=== PATIENT | female | born 1980 | race Caucasian/White ===

== ENCOUNTER 2016-03-28 18:41 | Emergency (ER) | payer OTHER ==
--- NOTE | 2016-03-28 21:25 | ED ORDER SUMMARY ---
..... Patient: JOSE KAYE OrderSheet [facility] VisitID: [id number] [address] [place] [address] 35y, F Registration Date/Time: 03/28/2016 ORDER SHEET Weight: 68.0 kg (stated) Allergies: Codeine GENERAL ORDERS: CBC w Diff Urgent (20:32 03/28/2016 HBivens A.R.N.P.) (Ack 20:35 CHagerty ER Digital Printer) (20:52 EInderbitzen R.N.) CMP Urgent (20:32 03/28/2016 HBivens A.R.N.P.) (Ack 20:35 CHagerty ER Digital Printer) (20:52 EInderbitzen R.N.) UA-Culture if indicated Urgent (20:32 03/28/2016 HBivens A.R.N.P.) (Ack 20:35 CHagerty ER Digital Printer) (21:03 EInderbitzen R.N.) Amylase Urgent (20:32 03/28/2016 HBivens A.R.N.P.) (Ack 20:35 CHagerty ER Digital Printer) (20:52 EInderbitzen R.N.) Lipase Urgent (20:32 03/28/2016 HBivens A.R.N.P.) (Ack 20:35 CHagerty ER Digital Printer) (20:52 EInderbitzen R.N.) Urine Drug Screen Urgent (20:32 03/28/2016 HBivens A.R.N.P.) (Ack 20:35 CHagerty ER Digital Printer) (21:03 EInderbitzen R.N.) Urine Urgent (20:32 03/28/2016 HBivens A.R.N.P.) (Ack 20:35 CHagerty ER Digital Printer) (21:03 EInderbitzen R.N.) CPK Urgent (21:03/28/2016 EInderbitzen R.N. verbal order read back to HBivens A.R.N.P.) (21:03 EInderbitzen R.N.) Panel Builder (Continuous) (21:17 03/28/2016 HBivens A.R.N.P.) (21:18 EInderbitzen R.N.) EKG - ER Stat (21:18 03/28/2016 HBivens A.R.N.P.) (21:35 SBaldwin) Pelvis 1 or 2V Urgent (21:31 03/28/2016 HBivens A.R.N.P.) (Ack 21:37 CHagerty ER Digital Printer) (21:47 MCampbell) CT Head wo Cont Urgent (21:55 03/28/2016 HBivens A.R.N.P.) (Ack 21:59 CHagerty ER Digital Printer) (22:16 MCampbell) Weber Catheter (23:07 03/28/2016 HBivens A.R.N.P.) (23:25 EIkennyerbitzen R.N.) MEDICATION ORDERS: IV FLUIDS: IV NS : initial bolus 1000 mL (1000 mL/hr), then none - for X1 (NOW) (20:31 03/28/2016 HBivens A.R.N.P.) (20:52 Ikeermortezazen R.N.) IV Saline Lock (20:32 03/28/2016 HBivens A.R.N.P.) (20:52 Jonozen R.N.) ORDER SHEET NOTES: [Electronically signed by Keena Shultz R.N. (23:42 03/28/2016)] [Electronically signed by Melia MelchorR.N.PCatalina (13:42 04/02/2016)] [Electronically locked/signed by Keena Shultz R.N. (23:42 03/28/2016)]
--- NOTE | 2016-03-28 21:25 | ED ORDER SUMMARY ---
..... Patient: JOSE KAYE OrderSheet [facility] VisitID: [id number] [address] [place] [address] 35y, F Registration Date/Time: 03/28/2016 ORDER SHEET Weight: 68.0 kg (stated) Allergies: Codeine GENERAL ORDERS: CBC w Diff Urgent (20:32 03/28/2016 HBivens A.R.N.P.) (Ack 20:35 CHagerty ER Snowboard Instructor) (20:52 EInderbitzen R.N.) CMP Urgent (20:32 03/28/2016 HBivens A.R.N.P.) (Ack 20:35 CHagerty ER Snowboard Instructor) (20:52 EInderbitzen R.N.) UA-Culture if indicated Urgent (20:32 03/28/2016 HBivens A.R.N.P.) (Ack 20:35 CHagerty ER Snowboard Instructor) (21:03 EInderbitzen R.N.) Amylase Urgent (20:32 03/28/2016 HBivens A.R.N.P.) (Ack 20:35 CHagerty ER Snowboard Instructor) (20:52 EInderbitzen R.N.) Lipase Urgent (20:32 03/28/2016 HBivens A.R.N.P.) (Ack 20:35 CHagerty ER Snowboard Instructor) (20:52 EInderbitzen R.N.) Urine Drug Screen Urgent (20:32 03/28/2016 HBivens A.R.N.P.) (Ack 20:35 CHagerty ER Snowboard Instructor) (21:03 EInderbitzen R.N.) Urine Urgent (20:32 03/28/2016 HBivens A.R.N.P.) (Ack 20:35 CHagerty ER Snowboard Instructor) (21:03 EInderbitzen R.N.) CPK Urgent (21:03/28/2016 EInderbitzen R.N. verbal order read back to HBivens A.R.N.P.) (21:03 EInderbitzen R.N.) Informatics Developer (Continuous) (21:17 03/28/2016 HBivens A.R.N.P.) (21:18 EInderbitzen R.N.) EKG - ER Stat (21:18 03/28/2016 HBivens A.R.N.P.) (21:35 SBaldwin) Pelvis 1 or 2V Urgent (21:31 03/28/2016 HBivens A.R.N.P.) (Ack 21:37 CHagerty ER Snowboard Instructor) (21:47 MCampbell) CT Head wo Cont Urgent (21:55 03/28/2016 HBivens A.R.N.P.) (Ack 21:59 CHagerty ER Snowboard Instructor) (22:16 MCampbell) Weber Catheter (23:07 03/28/2016 HBivens A.R.N.P.) (23:25 EIkennyerbitzen R.N.) MEDICATION ORDERS: IV FLUIDS: IV NS : initial bolus 1000 mL (1000 mL/hr), then none - for X1 (NOW) (20:31 03/28/2016 HBivens A.R.N.P.) (20:52 Ikeermortezazen R.N.) IV Saline Lock (20:32 03/28/2016 HBivens A.R.N.P.) (20:52 Jonozen R.N.) ORDER SHEET NOTES: [Electronically signed by Keena Shultz R.N. (23:42 03/28/2016)] [Electronically signed by Melia MelchorR.N.PCatalina (13:42 04/02/2016)] [Electronically locked/signed by Keena Shultz R.N. (23:42 03/28/2016)]
--- NOTE | 2016-03-28 21:25 | ED NURSING NOTES ---
Clinical Report - Nurses [facility] [address] [place] [address] 03/28/2016 18:42 Patient: JOSE KAYE TRIAGE Triage time 19:07 Mar 28 2016. Acuity: LEVEL 3. Chief Complaint: ("I can't walk"). Alert. No acute distress. DEBO COMA SCORE: Debo Coma Scale: 15- eyes open spontaneously (4); best verbal response- oriented x 4 (5); best motor response- obeys commands (6). --19:12 Edilma Coker R.N. 19:07 03/28/16. BP: 126/83. HR: 92. RR: 16. O2 saturation: 98%. Temp: 98.0 F. Pain level now 0/10. --19:12 Edilma Coker R.N. Weight: 68 kg stated. Height/Length: 62 inches Per Patient. BMI: 27.4. --19:05 Edilma Coker R.N. Medications Cymbalta Oral 60mg , daily. Diazepam Oral 10 mg, as needed (took 2 tablets today at 1800.). --19:09 Edilma Coker R.N. Valtrex Oral (Tablet 500 mg) 2 tablets, daily. --19:09 Edilma Coker R.N. Tenex Oral (unknown). --19:11 Edilma Coker R.N. Medication/allergy information source: the patient. --19:12 Edilma Coker R.N. Allergies Codeine. --19:09 Edilma Coker R.N. History Arrived by private vehicle, and accompanied by family and mother. Primary physician (Dr. Garner). ( Pt states she hasn't been able to walk for a week, has not seen her PCP, PCP doesn't know about the problem. Pt has slurred speech, appears tired while talking to lead slot technician, pupils are dilated, states she's on Valium.). Onset. (1 week). Treatment DIPLOMATIC OFFICER: None. SOCIAL HX: Former smoker. Regular alcohol use. No drug use. No infectious disease exposure. FALL RISK ASSESSMENT: Fall risk assessment completed. No fall risk identified. NUTRITIONAL RISK ASSESSMENT: The nutritional risk assessment revealed no deficiencies. LEARNING NEEDS ASSESSMENT: The learning needs assessment revealed no barriers. SKIN INTEGRITY ASSESSMENT: Skin integrity risk assessment completed. No skin integrity risk identified. --19:12 Edilma Coker R.N. PAST MEDICAL HX: Last normal menstrual period- was on Depo. --19:12 Edilma Coker R.N. ( Additional history. Patient reports that last Friday (03/22) she was bringing wood from a pile into the house when the pile tipped and fell on her. She sustained multiple contusions from this. She reports that while she was reading "papers" in her closet, she fell asleep in a sitting position with feet exteded in front of her for about 16 hours. She had severe pain all over and difficulty walking due to extreme swelling in her legs. She then reports 3 days of voiding dark urine. Mother states that she gave her one of her own oral morhine tablets for her pain. Patient takes large amount of valium daily for PTSD.). --21:18 Keena Shultz R.N. PROBLEMS: Animal Bite. Chest Pain. Depression. PTSD. Back Pain. Arthritis. Post-Op Complications. Nasal Fracture. Contusion. Facial injuries . Alcohol Intoxication. Anxiety Reaction. Pelvic Inflammatory Disease. Vaginitis. Dental Abscess. Conjunctivitis. LNMP - Last Normal Menstrual Period. --19:11 Edilma Coker R.N. ADDITIONAL SURGERIES: Sinus Surgery. --19:11 Edilma Coker R.N. Interventions ID band on patient. To room. --19:12 Edilma Coker R.N. PHYSICAL ASSESSMENT To room via wheelchair. ( large bruise on right upper arm and left outer thight. Large bruise on coccyx extending to both buttocks, scattered small bruises on arms and legs.). GENERAL / NEURO / PSYCH: Alert. Oriented X 4. Appears in pain. HEENT: Pupils equal, round and reactive to light. No facial asymmetry noted. No facial weakness. No pharyngeal erythema or active bleeding from nose. No sinus tenderness present. ( reported bloody mucus from nose). Mucous membranes are pink. RESPIRATORY: Respirations not labored. Cough (subjectively reported bloody sputum). Chest nontender. Breath sounds within normal limits. CVS: Normal sinus rhythm noted. Pulses within normal limits. GI / : Abdomen soft and nontender and normal bowel sounds. EXTREMITIES: Bilateral 4+ non-pitting edema of the lower extremities involving both feet, both ankles, both lower legs and both thighs. SKIN: Skin intact. Skin is warm and dry. Normal skin turgor. --21:14 Keena Shultz R.N. NURSING PROGRESS NOTES 20:20 03/28/16. The initial plan of care for this patient includes an assessment with efforts to address patient positioning; the presence of pain; impairment of the cardiovascular, musculoskeletal and integumentary system. This plan of care was discussed with the patient. Patient gowned. Reassurance given. Patient identifiers checked. Call light placed in reach. Side rails up x 2. Bed placed in lowest position. Brakes of bed on. Patient ready for evaluation. --20:35 Keena Shultz R.N. 20:20 03/28/2016 Site #1 started via IV in the right forearm with an 20g angiocath, with aseptic technique and good blood return; one attempt. Saline lock flushed with 10 mL saline. --20:39 Keena Shultz R.N. 20:25 03/28/16. Patient ID band checked for patient name and birthdate: patient confirmed. Blood samples drawn from the left antecubital space with syringe and 22g butterfly by nurse ; labeled in presence of the patient and sent to lab: rainbow set. --20:40 Keena Shultz R.N. 20:30 03/28/2016 Started bag #1 1000 mL IV Fluids IV NS (Saline); at 1000 mL/hr over 1 hour(s) via site #1. Allergies verified and confirmed 5 rights. IV patency established. IV site checked: no pain, redness, or swelling. IV flushed thoroughly pre- and post-medication administration. --20:52 Keena Shultz R.N. 20:41 03/28/16. Pulse oximeter and NIBP monitor placed on patient; still cleaner tube- Lead II; monitor alarms on. --20:41 Keena Shultz R.N. 21:01 03/28/16. 10 fr in/out catheterization placed. Reason for indwelling catheter: trauma. During procedure hand hygiene observed and sterile equipment and aseptic technique used. Return of less than 50 mL yellow-colored clear urine. She tolerated procedure well. ( while doing straight cath for urine. mother at bedside reports that she may have opiates in urine as she gave her one of her own oral morphine tablets today). --21:01 Keena Shultz R.N. 21:03/28/16. Critical value relayed to ED by Aleksandr. Critical value received by Jolene. BUN: 86. ED physician and AUTHORIZATION SPECIALIST notifed of critical value. Orders were received. --21:09 Keena Shultz R.N. 21:10 03/28/16. BP: 141/80. HR: 89. RR: 20. O2 saturation: 97%. Pain level now 3/10. --21:10 Keena Shultz R.NCatalina 21:26 03/28/16. network internship, pulse oximeter and NIBP monitor placed on patient; still cleaner tube- Lead II; monitor alarms on. --21:26 Keena Shultz R.N. EKG time: (21:36:02 PM). EKG was performed by a tech and shown to the ED physician. --21:46 Jens Friend 21:53 03/28/16. Cardiac rhythm: normal sinus rhythm. ( to be transferred to facility yet to be determined. pt and family aware). --21:53 Keena Shultz R.N. 21:53 03/28/16. BP: 142/80. HR: 91. RR: 18. O2 saturation: 98%. Pain level now 5/10. --21:53 Keena Shultz R.NCatalina 23:24 03/28/16. 14 fr shea catheter placed. Reason for indwelling catheter: trauma, critical need to monitor intake and output and requires prolonged immobilization. During procedure hand hygiene observed and sterile equipment and aseptic technique used. Return of greater than 1000 mL yellow-colored clear urine; attached to bedside drainage bag positioned below the bladder and secured with stabilization device. She tolerated procedure well. --23:24 Keena Shultz R.N. 23:24 03/28/16. BP: 142/84. HR: 94. RR: 18. O2 saturation: 97%. Temp: 99.0 F. Pain level now 09/26. --23:24 Keena Shultz R.N. Intake & Output IV fluids: 1000 mL. Urine: 1300 mL. --23:24 Keena Shultz R.N. DISPOSITION / DISCHARGE 21:30 03/28/2016 IV Fluids IV NS Discontinued: bag #1 completed. Total amount infused: 1000 mL. IV patency established. IV site checked: no pain, redness, or swelling. IV flushed thoroughly. --23:41 Keena Shultz R.N. 23:30 03/28/16. Condition at departure: improved and stable. The goals identified in the patient's plan of care were met. Transferred to [facility]. Summary of care provided to transport team and transfer facility via paper (5a room 514-1). Report was given to a nurse via a phone call. Report included patient's care, treatment, medications, reviewed medication reconcilliation, and condition (including any recent changes or anticipated changes). All questions were answered. Report was acknowledged. (to TERESO Rudd). --23:42 Keena Shultz R.N. 23:22 03/28/16. BP: 142/84. HR: 94. RR: 18. O2 saturation: 97%. Temp: 99.0 F. Pain level now 09/26. 21:52 03/28/16. BP: 142/80. HR: 91. RR: 18. O2 saturation: 98%. Pain level now 06/26. 21:10 03/28/16. BP: 141/80. HR: 89. RR: 20. O2 saturation: 97%. Pain level now 04/26. 19:07 03/28/16. BP: 126/83. HR: 92. RR: 16. O2 saturation: 98%. Temp: 98.0 F. Pain level now 0/10. --23:42 Keena Shultz R.N. Departure time: 23:30 Mar 28 2016. --23:42 Keena Shultz R.N. Locked/Released at 03/28/2016 23:42 by Keena Shultz R.N.
--- NOTE | 2016-03-28 21:25 | ED NURSING NOTES ---
Clinical Report - Nurses [facility] [address] [place] [address] 03/28/2016 18:42 Patient: JOSE KAYE TRIAGE Triage time 19:07 Mar 28 2016. Acuity: LEVEL 3. Chief Complaint: ("I can't walk"). Alert. No acute distress. DEBO COMA SCORE: Debo Coma Scale: 15- eyes open spontaneously (4); best verbal response- oriented x 4 (5); best motor response- obeys commands (6). --19:12 Edilma Coker R.N. 19:07 03/28/16. BP: 126/83. HR: 92. RR: 16. O2 saturation: 98%. Temp: 98.0 F. Pain level now 0/10. --19:12 Edilma Coker R.N. Weight: 68 kg stated. Height/Length: 62 inches Per Patient. BMI: 27.4. --19:05 Edilma Coker R.N. Medications Cymbalta Oral 60mg , daily. Diazepam Oral 10 mg, as needed (took 2 tablets today at 1800.). --19:09 Edilma Coker R.N. Valtrex Oral (Tablet 500 mg) 2 tablets, daily. --19:09 Edilma Coker R.N. Tenex Oral (unknown). --19:11 Edilma Coker R.N. Medication/allergy information source: the patient. --19:12 Edilma Coker R.N. Allergies Codeine. --19:09 Edilma Coker R.N. History Arrived by private vehicle, and accompanied by family and mother. Primary physician (Dr. Garner). ( Pt states she hasn't been able to walk for a week, has not seen her PCP, PCP doesn't know about the problem. Pt has slurred speech, appears tired while talking to service attendant cafeteria, pupils are dilated, states she's on Valium.). Onset. (1 week). Treatment POINT OF SALE ASSOCIATE: None. SOCIAL HX: Former smoker. Regular alcohol use. No drug use. No infectious disease exposure. FALL RISK ASSESSMENT: Fall risk assessment completed. No fall risk identified. NUTRITIONAL RISK ASSESSMENT: The nutritional risk assessment revealed no deficiencies. LEARNING NEEDS ASSESSMENT: The learning needs assessment revealed no barriers. SKIN INTEGRITY ASSESSMENT: Skin integrity risk assessment completed. No skin integrity risk identified. --19:12 Edilma Coker R.N. PAST MEDICAL HX: Last normal menstrual period- was on Depo. --19:12 Edilma Coker R.N. ( Additional history. Patient reports that last Friday (03/22) she was bringing wood from a pile into the house when the pile tipped and fell on her. She sustained multiple contusions from this. She reports that while she was reading "papers" in her closet, she fell asleep in a sitting position with feet exteded in front of her for about 16 hours. She had severe pain all over and difficulty walking due to extreme swelling in her legs. She then reports 3 days of voiding dark urine. Mother states that she gave her one of her own oral morhine tablets for her pain. Patient takes large amount of valium daily for PTSD.). --21:18 Keena Shultz R.N. PROBLEMS: Animal Bite. Chest Pain. Depression. PTSD. Back Pain. Arthritis. Post-Op Complications. Nasal Fracture. Contusion. Facial injuries . Alcohol Intoxication. Anxiety Reaction. Pelvic Inflammatory Disease. Vaginitis. Dental Abscess. Conjunctivitis. LNMP - Last Normal Menstrual Period. --19:11 Edilma Coker R.N. ADDITIONAL SURGERIES: Sinus Surgery. --19:11 Edilma Coker R.N. Interventions ID band on patient. To room. --19:12 Edilma Coker R.N. PHYSICAL ASSESSMENT To room via wheelchair. ( large bruise on right upper arm and left outer thight. Large bruise on coccyx extending to both buttocks, scattered small bruises on arms and legs.). GENERAL / NEURO / PSYCH: Alert. Oriented X 4. Appears in pain. HEENT: Pupils equal, round and reactive to light. No facial asymmetry noted. No facial weakness. No pharyngeal erythema or active bleeding from nose. No sinus tenderness present. ( reported bloody mucus from nose). Mucous membranes are pink. RESPIRATORY: Respirations not labored. Cough (subjectively reported bloody sputum). Chest nontender. Breath sounds within normal limits. CVS: Normal sinus rhythm noted. Pulses within normal limits. GI / : Abdomen soft and nontender and normal bowel sounds. EXTREMITIES: Bilateral 4+ non-pitting edema of the lower extremities involving both feet, both ankles, both lower legs and both thighs. SKIN: Skin intact. Skin is warm and dry. Normal skin turgor. --21:14 Keena Shultz R.N. NURSING PROGRESS NOTES 20:20 03/28/16. The initial plan of care for this patient includes an assessment with efforts to address patient positioning; the presence of pain; impairment of the cardiovascular, musculoskeletal and integumentary system. This plan of care was discussed with the patient. Patient gowned. Reassurance given. Patient identifiers checked. Call light placed in reach. Side rails up x 2. Bed placed in lowest position. Brakes of bed on. Patient ready for evaluation. --20:35 Keena Shultz R.N. 20:20 03/28/2016 Site #1 started via IV in the right forearm with an 20g angiocath, with aseptic technique and good blood return; one attempt. Saline lock flushed with 10 mL saline. --20:39 Keena Shultz R.N. 20:25 03/28/16. Patient ID band checked for patient name and birthdate: patient confirmed. Blood samples drawn from the left antecubital space with syringe and 22g butterfly by nurse ; labeled in presence of the patient and sent to lab: rainbow set. --20:40 Keena Shultz R.N. 20:30 03/28/2016 Started bag #1 1000 mL IV Fluids IV NS (Saline); at 1000 mL/hr over 1 hour(s) via site #1. Allergies verified and confirmed 5 rights. IV patency established. IV site checked: no pain, redness, or swelling. IV flushed thoroughly pre- and post-medication administration. --20:52 Keena Shultz R.N. 20:41 03/28/16. Pulse oximeter and NIBP monitor placed on patient; surveillance system monitor- Lead II; monitor alarms on. --20:41 Keena Shultz R.N. 21:01 03/28/16. 10 fr in/out catheterization placed. Reason for indwelling catheter: trauma. During procedure hand hygiene observed and sterile equipment and aseptic technique used. Return of less than 50 mL yellow-colored clear urine. She tolerated procedure well. ( while doing straight cath for urine. mother at bedside reports that she may have opiates in urine as she gave her one of her own oral morphine tablets today). --21:01 Keena Shultz R.N. 21:03/28/16. Critical value relayed to ED by Aleksandr. Critical value received by Jolene. BUN: 86. ED physician and DRYING TUMBLER OPERATOR notifed of critical value. Orders were received. --21:09 Keena Shultz R.N. 21:10 03/28/16. BP: 141/80. HR: 89. RR: 20. O2 saturation: 97%. Pain level now 3/10. --21:10 Keena Shultz R.NCatalina 21:26 03/28/16. potline monitor, pulse oximeter and NIBP monitor placed on patient; surveillance system monitor- Lead II; monitor alarms on. --21:26 Keena Shultz R.N. EKG time: (21:36:02 PM). EKG was performed by a tech and shown to the ED physician. --21:46 Jens Friend 21:53 03/28/16. Cardiac rhythm: normal sinus rhythm. ( to be transferred to facility yet to be determined. pt and family aware). --21:53 Keena Shultz R.N. 21:53 03/28/16. BP: 142/80. HR: 91. RR: 18. O2 saturation: 98%. Pain level now 5/10. --21:53 Keena Shultz R.NCatalina 23:24 03/28/16. 14 fr shea catheter placed. Reason for indwelling catheter: trauma, critical need to monitor intake and output and requires prolonged immobilization. During procedure hand hygiene observed and sterile equipment and aseptic technique used. Return of greater than 1000 mL yellow-colored clear urine; attached to bedside drainage bag positioned below the bladder and secured with stabilization device. She tolerated procedure well. --23:24 Keena Shultz R.N. 23:24 03/28/16. BP: 142/84. HR: 94. RR: 18. O2 saturation: 97%. Temp: 99.0 F. Pain level now 09/26. --23:24 Keena Shultz R.N. Intake & Output IV fluids: 1000 mL. Urine: 1300 mL. --23:24 Keena Shultz R.N. DISPOSITION / DISCHARGE 21:30 03/28/2016 IV Fluids IV NS Discontinued: bag #1 completed. Total amount infused: 1000 mL. IV patency established. IV site checked: no pain, redness, or swelling. IV flushed thoroughly. --23:41 Keena Shultz R.N. 23:30 03/28/16. Condition at departure: improved and stable. The goals identified in the patient's plan of care were met. Transferred to [facility]. Summary of care provided to transport team and transfer facility via paper (5a room 514-1). Report was given to a nurse via a phone call. Report included patient's care, treatment, medications, reviewed medication reconcilliation, and condition (including any recent changes or anticipated changes). All questions were answered. Report was acknowledged. (to TERESO Rudd). --23:42 Keena Shultz R.N. 23:22 03/28/16. BP: 142/84. HR: 94. RR: 18. O2 saturation: 97%. Temp: 99.0 F. Pain level now 09/26. 21:52 03/28/16. BP: 142/80. HR: 91. RR: 18. O2 saturation: 98%. Pain level now 06/26. 21:10 03/28/16. BP: 141/80. HR: 89. RR: 20. O2 saturation: 97%. Pain level now 04/26. 19:07 03/28/16. BP: 126/83. HR: 92. RR: 16. O2 saturation: 98%. Temp: 98.0 F. Pain level now 0/10. --23:42 Keena Shultz R.N. Departure time: 23:30 Mar 28 2016. --23:42 Keena Shultz R.N. Locked/Released at 03/28/2016 23:42 by Keena Shultz R.N.
--- NOTE | 2016-03-28 21:25 | ED CLINICAL REPORT ---
Clinical Report - Physicians/Mid Levels [facility] [address] [place] [address] 03/28/2016 18:42 Patient: JOSE KAYE Time Seen: 2019; upon arrival, initial patient contact, initial documentation, patient care assumed. Arrived- By private vehicle. Historian- patient. HISTORY OF PRESENT ILLNESS Chief Complaint: WEAKNESS. This started about 3 days ago and is still present. The patient has had new onset of localized weakness of the right leg (moderate). No numbness, tingling, impaired speech or swallowing or visual disturbance. She has had difficulty walking. It has been associated with weakness in the right leg. She has had one recent fall (says she tripped a few days ago bringing firewood around, fell onto firewood pile and ladder, multiple bruises everywhere). There has been no fall preceded by dizziness. No fall associated with seizure activity, palpitations or headache. No similar fall symptoms previously. No history of falling episodes. This was not associated with loss of consciousness. At its maximum deficit described as severe. When seen in the E.D.,deficit described as moderate. No dizziness, altered mental status, seizure or blackouts. Usually is alert and oriented X3 and has normal mobility. (says she is too weak to walk and has been crawling on hands and knees around the house, took one of mom's pain pills for the hip pain). Similar symptoms previously: None. Recent medical care: Not recently seen/assessed. REVIEW OF SYSTEMS No fever, headache, head injury, chest pain or difficulty breathing. No abdominal pain, diarrhea, difficulty with urination or vomiting. She has had moderate joint pain, involving the right hip and left hip. No swelling, erythema or warmth. c/o dark urine. All systems otherwise negative, except as recorded above. PAST HISTORY See nurses notes. ( PROBLEMS: Animal Bite. Chest Pain. Depression. PTSD. Back Pain. Arthritis. Post-Op Complications. Nasal Fracture. Contusion. Facial injuries . Alcohol Intoxication. Anxiety Reaction. Pelvic Inflammatory Disease. Vaginitis. Dental Abscess. Conjunctivitis. LNMP - Last Normal Menstrual Period. --19:11 Edilma Coker R.N. ADDITIONAL SURGERIES: Sinus Surgery. --19:11 Edilma Coker R.N.). SOCIAL HISTORY Former smoker. Occasional alcohol use. No drug use. No recent travel. Is a local resident. FAMILY HISTORY Negative. ADDITIONAL NOTES The nursing notes have been reviewed with agreement regarding the chief complaint, HPI, ROS, PMH and patient medications and allergies. PHYSICAL EXAM Vital Signs: 03/28/2016 19:07 BP: 126/83. HR: 92. RR: 16. O2 saturation: 98%. Temp: 98.0 F. Have been reviewed as normal and appear to be correct. Appearance: Alert. No acute distress. (somewhat slurred speech appears under the influence). Head: Head atraumatic. Eyes: Pupils equal, round and reactive to light. ENT: Normal ENT inspection. Airway intact. Pharynx normal. Neck: Normal inspection. Neck supple. CVS: Normal heart rate and rhythm. Heart sounds normal. Pulses normal. Respiratory: No respiratory distress. Breath sounds normal. Abdomen: Soft and nontender. No organomegaly. Back: Normal inspection. Skin: Skin warm and dry. Normal skin color. No rash. Normal skin turgor. Extremities: Extremities exhibit normal ROM. No lower extremity edema. (multiple bruises noted, R upper arm, R knee, L thigh). Neuro: Alert. Oriented X 3. Mood/affect normal. Abnormal speech. Cranial nerves normal (as tested). No cerebellar findings. Motor deficit noted. She has had localized weakness of the right leg (mild). No sensory deficit. LABS, X-RAYS, AND EKG EKG: EKG time: (2135). No acute process. No acute ischemia. Normal EKG. Rate: 88. Normal EKG. The study has been interpreted contemporaneously by me (and DR Adamson). The EKG appears to be a good tracing. Interpretation time: 2135. X-Rays: Pelvis negative. Pelvis X-ray: (IMPRESSION: 1. Negative pelvis Electronically Final signed by:Miguel Alvarenga MD 03/28/2016 9:50:18 PM). The X-rays were interpreted by the radiologist and contemporaneously by me. CT Head: No acute disease. (IMPRESSION: 1. Negative non-enhanced head CT. 2. Findings discussed with Melia Melchor at 10:18 p.m.[facility] Time Electronically Final signed by:Miguel Alvarenga MD 03/28/2016 10:21:33 PM). The study was interpreted by the radiologist and discussed with the radiologist. Interpretation time: 22:20. Laboratory Tests: UA-Culture if indicated: (YUE: 03/28/2016 20:55) ( [facility] 21:30) Final results Test Result Flag Units (Reference) URINE COLOR LIGHT YELLOW URINE APPEARANCE CLEAR URINE GLUCOSE NEGATIVE (NEGATIVE) URINE BILIRUBIN NEGATIVE (NEGATIVE) URINE KETONE NEGATIVE (NEGATIVE) URINE SPECIFIC GRAVITY <= 1.005 L (1.010-1.030) URINE PH 6.0 (5.0-8.0) URINE PROTEIN NEGATIVE (NEGATIVE) URINE UROBILINOGEN 0.2 EU/dL (0.2-1.0) URINE NITRITE NEGATIVE (NEGATIVE) URINE BLOOD 1+ (NEGATIVE) URINE LEUK ESTERASE NEGATIVE (NEGATIVE) URINE RBC 0-1 rbc/hpf (0-1) URINE WBC 0-1 wbc/hpf (0-1) URINE EPITHELIAL CELLS 0-1 EPI/hpf (0-5) URINE BACTERIA NONE SEEN (NONE SEEN) URINE COMMENT CULTURE INDICATED URINE CULTURES ARE SET-UP BASED ON THE FOLLOWING CRITERIA:POSITIVE NITRITEPOSITIVE LEUKOCYTE ESTERASEGREATER THAN 10 WHITE BLOOD CELLSMODERATE (2+) OR GREATER BACTERIA Urine: (YUE: 03/28/2016 20:55) ( MegRcvd 03/28/2016 21:08) Final results Test Result Flag Units (Reference) URINE NEGATIVE CBC w Diff: (YUE: 03/28/2016 20:30) ( MsgRcvd 03/28/2016 20:52) Final results Test Result Flag Units (Reference) WHITE BLOOD COUNT 5.3 K/uL (4.5-11.5) RED BLOOD COUNT 3.74 L M/uL (4.00-5.20) HEMOGLOBIN 13.0 gm/dL (12.0-16.0) HEMATOCRIT 37.8 % (36.0-46.0) MEAN CELL VOLUME 101 H fL (80-100) MEAN CORPUSCULAR HGB 35 H pg (26-34) MEAN CORPUSCULAR HGB CONC 34 g/dL (31-37) RED CELL DISTRIBUTION WIDTH 15.3 H % (11.6-14.8) PLATELET COUNT 159 K/uL (150-400) NEUTROPHIL % 53.9 % (50-75) LYMPH % 31.8 % (25-40) MONO % 10.6 % (3-14) EOSINOPHIL % 3.4 % (0-4) BASOPHIL % 0.3 % (0-2) Urine Drug Screen: (YUE: 03/28/2016 20:55) ( MsgRcvd 03/28/2016 21:29) Final results Test Result Flag Units (Reference) AMPHETAMINE/METHAMPHETAMINE NEGATIVE (NEGATIVE) BARBITURATE NEGATIVE (NEGATIVE) BENZODIAZEPINE POSITIVE H (NEGATIVE) CANNABINOID NEGATIVE (NEGATIVE) COCAINE NEGATIVE (NEGATIVE) ECSTASY NEGATIVE (NEGATIVE) METHADONE NEGATIVE (NEGATIVE) OPIATE POSITIVE H (NEGATIVE) The urine drug screen is a qualitative screening test fordrug overdose and abuse. All screen results should beconsidered as presumptive.Drugs screened for are as follows:BenzodiazepinesCocaineAmphetamines/MetamphetaminesTHC (Tetrahydrocannabinol)OpiatesBarbituratesEcstasyMethadonePositive results are unconfirmed. For confirmation, notifythe lab for the specimen to be sent to the reference lab.All confirmations must be performed by a differentmethodology.The ingestion of natural herbal and plant productscontaining Ephedra/Ephedra metabolites can produce in urineone or more substances capable of cross reacting withamphetamine/methamphetamine immunoassays. These testsprovide a preliminary result only. A more specificalternative chemical method must be used to obtain aconfirmed analytical result. CMP: (YUE: 03/28/2016 20:30) ( [facility] 03/28/2016 22:35) Final results Test Result Flag Units (Reference) GLUCOSE 159 H mg/dL (70-110) BUN 86 *H mg/dL (7-18) CRITICAL RESULTS CALLEDCalled to GARY 03/28/162107Were 2 patient identifiers used? YWas the result read back? Y CREATININE 3.3 H mg/dL (0.6-1.3) Estimated GFR 17.11 mL/min Estimated GFR- 20.74 mL/min Note: Persistent reduction over 3 months in eGFR<60 mL/min/1.73 m2 defines CKD. Patients with eGFR values>=60 mL/min/1.73 m2 may also have CKD if evidence ofpersistent proteinuria. Additional information may be foundat www.kidney.org. SODIUM 123 L mmol/L (136-145) POTASSIUM 3.3 L mmol/L (3.5-5.1) CHLORIDE 85 L mmol/L (98-107) CARBON DIOXIDE 23 mmol/L (21-32) CALCIUM 9.0 mg/dL (8.5-10.1) TOTAL PROTEIN 6.9 g/dL (6.4-8.2) ALBUMIN 3.3 g/dL (3.3-5.0) BILIRUBIN, TOTAL 1.0 mg/dL (0.0-1.0) ALKALINE PHOSPHATASE 157 H U/L (46-116) AST (SGOT) 852 H U/L (15-37) ALT (SGPT) 550 H U/L (12-78) LIPASE 745 H U/L (73-393) AMYLASE 90 U/L (25-115) CPK 39084 H U/L (24-260) . PROGRESS AND PROCEDURES Course of Care: 20:49 03/28/16. pt has martha pt of [place] [facility], consistent Valium rx, 21:17 03/28/16. pt and mom aware of current lab results, more pending and need for transfer for kidney failure/insufficiency 2150. Spoke to TERESO Cagle at [facility] and Dr. Cristóbal Young, with pt report and need for transfer, Dr. Wolf accepted, and general medicine bed being held as long as head ct neg agreed to call Tsering back with results 2204. pt in ct, mom updated with transfer status 2225. Cpas informed of CT results and asked to call Tsering at [facility] to let her know, and call ems for transport for transfer 22:45 03/28/16. transfer form completed 23:08 03/28/16. transport team here. Critical care performed. Time includes: direct patient care, patient reassessment, coordination of patient care, interpretation of data (laboratory data), medical consultation and documentation of patient care- see progress notes. Discussed case with on-call health care provider, (call returned [phone]). Reviewed test results and need for additional work-up. Agreed upon treatment plan. Patient and mother counseled in person several times regarding the patient's stable condition, test results and need for additional testing and transfer. Differential Diagnosis: Other possible considerations: substance abuse, cva, tia, brain tumor, rhabdo, dehydration, hemorrhaging. Above considerations are based on history, physical exam, laboratory data and EKG. Differential diagnosis was discussed with patient. Disposition: Benefits, risks and alternatives to transfer explained to patient. Transferred to [facility]. Summary of care provided to transport team and transfer facility via paper and digital media. 21:59. CLINICAL IMPRESSION Acute renal insufficiency. Moderate hyponatremia. (Electronically signed by Melia Melchor A.R.N.P. 04/02/2016 13:42)
--- NOTE | 2016-03-28 21:25 | ED CLINICAL REPORT ---
Clinical Report - Physicians/Mid Levels [facility] [address] [place] [address] 03/28/2016 18:42 Patient: JOSE KAYE Time Seen: 2019; upon arrival, initial patient contact, initial documentation, patient care assumed. Arrived- By private vehicle. Historian- patient. HISTORY OF PRESENT ILLNESS Chief Complaint: WEAKNESS. This started about 3 days ago and is still present. The patient has had new onset of localized weakness of the right leg (moderate). No numbness, tingling, impaired speech or swallowing or visual disturbance. She has had difficulty walking. It has been associated with weakness in the right leg. She has had one recent fall (says she tripped a few days ago bringing firewood around, fell onto firewood pile and ladder, multiple bruises everywhere). There has been no fall preceded by dizziness. No fall associated with seizure activity, palpitations or headache. No similar fall symptoms previously. No history of falling episodes. This was not associated with loss of consciousness. At its maximum deficit described as severe. When seen in the E.D.,deficit described as moderate. No dizziness, altered mental status, seizure or blackouts. Usually is alert and oriented X3 and has normal mobility. (says she is too weak to walk and has been crawling on hands and knees around the house, took one of mom's pain pills for the hip pain). Similar symptoms previously: None. Recent medical care: Not recently seen/assessed. REVIEW OF SYSTEMS No fever, headache, head injury, chest pain or difficulty breathing. No abdominal pain, diarrhea, difficulty with urination or vomiting. She has had moderate joint pain, involving the right hip and left hip. No swelling, erythema or warmth. c/o dark urine. All systems otherwise negative, except as recorded above. PAST HISTORY See nurses notes. ( PROBLEMS: Animal Bite. Chest Pain. Depression. PTSD. Back Pain. Arthritis. Post-Op Complications. Nasal Fracture. Contusion. Facial injuries . Alcohol Intoxication. Anxiety Reaction. Pelvic Inflammatory Disease. Vaginitis. Dental Abscess. Conjunctivitis. LNMP - Last Normal Menstrual Period. --19:11 Edilma Coker R.N. ADDITIONAL SURGERIES: Sinus Surgery. --19:11 Edilma Coker R.N.). SOCIAL HISTORY Former smoker. Occasional alcohol use. No drug use. No recent travel. Is a local resident. FAMILY HISTORY Negative. ADDITIONAL NOTES The nursing notes have been reviewed with agreement regarding the chief complaint, HPI, ROS, PMH and patient medications and allergies. PHYSICAL EXAM Vital Signs: 03/28/2016 19:07 BP: 126/83. HR: 92. RR: 16. O2 saturation: 98%. Temp: 98.0 F. Have been reviewed as normal and appear to be correct. Appearance: Alert. No acute distress. (somewhat slurred speech appears under the influence). Head: Head atraumatic. Eyes: Pupils equal, round and reactive to light. ENT: Normal ENT inspection. Airway intact. Pharynx normal. Neck: Normal inspection. Neck supple. CVS: Normal heart rate and rhythm. Heart sounds normal. Pulses normal. Respiratory: No respiratory distress. Breath sounds normal. Abdomen: Soft and nontender. No organomegaly. Back: Normal inspection. Skin: Skin warm and dry. Normal skin color. No rash. Normal skin turgor. Extremities: Extremities exhibit normal ROM. No lower extremity edema. (multiple bruises noted, R upper arm, R knee, L thigh). Neuro: Alert. Oriented X 3. Mood/affect normal. Abnormal speech. Cranial nerves normal (as tested). No cerebellar findings. Motor deficit noted. She has had localized weakness of the right leg (mild). No sensory deficit. LABS, X-RAYS, AND EKG EKG: EKG time: (2135). No acute process. No acute ischemia. Normal EKG. Rate: 88. Normal EKG. The study has been interpreted contemporaneously by me (and DR Adamson). The EKG appears to be a good tracing. Interpretation time: 2135. X-Rays: Pelvis negative. Pelvis X-ray: (IMPRESSION: 1. Negative pelvis Electronically Final signed by:Miguel Alvarenga MD 03/28/2016 9:50:18 PM). The X-rays were interpreted by the radiologist and contemporaneously by me. CT Head: No acute disease. (IMPRESSION: 1. Negative non-enhanced head CT. 2. Findings discussed with Melia Melchor at 10:18 p.m.[facility] Time Electronically Final signed by:Miguel Alvarenga MD 03/28/2016 10:21:33 PM). The study was interpreted by the radiologist and discussed with the radiologist. Interpretation time: 22:20. Laboratory Tests: UA-Culture if indicated: (YUE: 03/28/2016 20:55) ( [facility] [place] 21:30) Final results Test Result Flag Units (Reference) URINE COLOR LIGHT YELLOW URINE APPEARANCE CLEAR URINE GLUCOSE NEGATIVE (NEGATIVE) URINE BILIRUBIN NEGATIVE (NEGATIVE) URINE KETONE NEGATIVE (NEGATIVE) URINE SPECIFIC GRAVITY <= 1.005 L (1.010-1.030) URINE PH 6.0 (5.0-8.0) URINE PROTEIN NEGATIVE (NEGATIVE) URINE UROBILINOGEN 0.2 EU/dL (0.2-1.0) URINE NITRITE NEGATIVE (NEGATIVE) URINE BLOOD 1+ (NEGATIVE) URINE LEUK ESTERASE NEGATIVE (NEGATIVE) URINE RBC 0-1 rbc/hpf (0-1) URINE WBC 0-1 wbc/hpf (0-1) URINE EPITHELIAL CELLS 0-1 EPI/hpf (0-5) URINE BACTERIA NONE SEEN (NONE SEEN) URINE COMMENT CULTURE INDICATED URINE CULTURES ARE SET-UP BASED ON THE FOLLOWING CRITERIA:POSITIVE NITRITEPOSITIVE LEUKOCYTE ESTERASEGREATER THAN 10 WHITE BLOOD CELLSMODERATE (2+) OR GREATER BACTERIA Urine: (YUE: 03/28/2016 20:55) ( WagRcvd 03/28/2016 21:08) Final results Test Result Flag Units (Reference) URINE NEGATIVE CBC w Diff: (YUE: 03/28/2016 20:30) ( MsgRcvd 03/28/2016 20:52) Final results Test Result Flag Units (Reference) WHITE BLOOD COUNT 5.3 K/uL (4.5-11.5) RED BLOOD COUNT 3.74 L M/uL (4.00-5.20) HEMOGLOBIN 13.0 gm/dL (12.0-16.0) HEMATOCRIT 37.8 % (36.0-46.0) MEAN CELL VOLUME 101 H fL (80-100) MEAN CORPUSCULAR HGB 35 H pg (26-34) MEAN CORPUSCULAR HGB CONC 34 g/dL (31-37) RED CELL DISTRIBUTION WIDTH 15.3 H % (11.6-14.8) PLATELET COUNT 159 K/uL (150-400) NEUTROPHIL % 53.9 % (50-75) LYMPH % 31.8 % (25-40) MONO % 10.6 % (3-14) EOSINOPHIL % 3.4 % (0-4) BASOPHIL % 0.3 % (0-2) Urine Drug Screen: (YUE: 03/28/2016 20:55) ( MsgRcvd 03/28/2016 21:29) Final results Test Result Flag Units (Reference) AMPHETAMINE/METHAMPHETAMINE NEGATIVE (NEGATIVE) BARBITURATE NEGATIVE (NEGATIVE) BENZODIAZEPINE POSITIVE H (NEGATIVE) CANNABINOID NEGATIVE (NEGATIVE) COCAINE NEGATIVE (NEGATIVE) ECSTASY NEGATIVE (NEGATIVE) METHADONE NEGATIVE (NEGATIVE) OPIATE POSITIVE H (NEGATIVE) The urine drug screen is a qualitative screening test fordrug overdose and abuse. All screen results should beconsidered as presumptive.Drugs screened for are as follows:BenzodiazepinesCocaineAmphetamines/MetamphetaminesTHC (Tetrahydrocannabinol)OpiatesBarbituratesEcstasyMethadonePositive results are unconfirmed. For confirmation, notifythe lab for the specimen to be sent to the reference lab.All confirmations must be performed by a differentmethodology.The ingestion of natural herbal and plant productscontaining Ephedra/Ephedra metabolites can produce in urineone or more substances capable of cross reacting withamphetamine/methamphetamine immunoassays. These testsprovide a preliminary result only. A more specificalternative chemical method must be used to obtain aconfirmed analytical result. CMP: (YUE: 03/28/2016 20:30) ( [facility] [place]/28/2016 22:35) Final results Test Result Flag Units (Reference) GLUCOSE 159 H mg/dL (70-110) BUN 86 *H mg/dL (7-18) CRITICAL RESULTS CALLEDCalled to GARY 03/28/162107Were 2 patient identifiers used? YWas the result read back? Y CREATININE 3.3 H mg/dL (0.6-1.3) Estimated GFR 17.11 mL/min Estimated GFR- 20.74 mL/min Note: Persistent reduction over 3 months in eGFR<60 mL/min/1.73 m2 defines CKD. Patients with eGFR values>=60 mL/min/1.73 m2 may also have CKD if evidence ofpersistent proteinuria. Additional information may be foundat www.kidney.org. SODIUM 123 L mmol/L (136-145) POTASSIUM 3.3 L mmol/L (3.5-5.1) CHLORIDE 85 L mmol/L (98-107) CARBON DIOXIDE 23 mmol/L (21-32) CALCIUM 9.0 mg/dL (8.5-10.1) TOTAL PROTEIN 6.9 g/dL (6.4-8.2) ALBUMIN 3.3 g/dL (3.3-5.0) BILIRUBIN, TOTAL 1.0 mg/dL (0.0-1.0) ALKALINE PHOSPHATASE 157 H U/L (46-116) AST (SGOT) 852 H U/L (15-37) ALT (SGPT) 550 H U/L (12-78) LIPASE 745 H U/L (73-393) AMYLASE 90 U/L (25-115) CPK 78690 H U/L (24-260) . PROGRESS AND PROCEDURES Course of Care: 20:49 03/28/16. pt has martha pt of [place] [facility], consistent Valium rx, 21:17 03/28/16. pt and mom aware of current lab results, more pending and need for transfer for kidney failure/insufficiency 2150. Spoke to TERESO Cagle at [facility] and Dr. Cristóbal Young, with pt report and need for transfer, Dr. Wolf accepted, and general medicine bed being held as long as head ct neg agreed to call Tsering back with results 2204. pt in ct, mom updated with transfer status 2225. Recreation Therapy Director informed of CT results and asked to call Tsering at [facility] to let her know, and call ems for transport for transfer 22:45 03/28/16. transfer form completed 23:08 03/28/16. transport team here. Critical care performed. Time includes: direct patient care, patient reassessment, coordination of patient care, interpretation of data (laboratory data), medical consultation and documentation of patient care- see progress notes. Discussed case with on-call health care provider, (call returned [phone]). Reviewed test results and need for additional work-up. Agreed upon treatment plan. Patient and mother counseled in person several times regarding the patient's stable condition, test results and need for additional testing and transfer. Differential Diagnosis: Other possible considerations: substance abuse, cva, tia, brain tumor, rhabdo, dehydration, hemorrhaging. Above considerations are based on history, physical exam, laboratory data and EKG. Differential diagnosis was discussed with patient. Disposition: Benefits, risks and alternatives to transfer explained to patient. Transferred to [facility]. Summary of care provided to transport team and transfer facility via paper and digital media. 21:59. CLINICAL IMPRESSION Acute renal insufficiency. Moderate hyponatremia. (Electronically signed by Melia Melchor A.R.N.P. 04/02/2016 13:42)
--- NOTE | 2016-03-28 21:50 | DIAGNOSTIC IMAGING REPORT ---
PROCEDURE: XR PELVIS 1 OR 2 VIEWS INDICATION: TRAUMA/INJURY TECHNIQUE: AP view. COMPARISON: None. FINDINGS: No fracture or dislocation. Normal hip joint spaces and soft tissues. IMPRESSION: 1. Negative pelvis
--- NOTE | 2016-03-28 22:21 | DIAGNOSTIC IMAGING REPORT ---
PROCEDURE: CT HEAD WITHOUT CONTRAST INDICATION: Head trauma, initial encounter TECHNIQUE: Noncontrast axial images with sagittal and coronal reformations. COMPARISON: None. FINDINGS: Sulci, ventricular system, and brain parenchyma are normal. No evidence of acute intracranial process. Old nasal fracture. Visualized mastoids and sinuses are clear. IMPRESSION: 1. Negative non-enhanced head CT. 2. Findings discussed with Melia Melchor at 10:18 p.m., [place] Standard Time
--- NOTE | 2016-04-02 13:42 | ED MED RECONCILIATION SUMMARY ---
Patient: JOSE KAYE Medication Reconciliation Report [facility] VisitID: [id number] [address] [place] [address] 35y, F Registration Date/Time: 03/28/2016 Weight: 68.0 kg Height/Length: 62 in. BMI: 27.4 ALLERGIES: Codeine The patient's Home Medications are listed below: THE FOLLOWING MEDICATIONS NEED TO BE RECONCILED: Cymbalta Oral 60mg , daily Diazepam Oral 10 mg, took 2 tablets today at 1800. Tenex Oral, unknown Valtrex Oral (500 mg) 2 tablets, daily The source(s) of the original Home Medication information: patient The following Medications were given to the patient in the Emergency Department: IV NS IV Fluids bolus 0, then 1000 mL/hr, administered: 03/28/2016 8:30:00 PM The following Medications were prescribed to the patient: None.
--- NOTE | 2016-04-02 13:42 | ED MED RECONCILIATION SUMMARY ---
Patient: JOSE KAYE Medication Reconciliation Report [facility] VisitID: [id number] [address] [place] [address] 35y, F Registration Date/Time: 03/28/2016 Weight: 68.0 kg Height/Length: 62 in. BMI: 27.4 ALLERGIES: Codeine The patient's Home Medications are listed below: THE FOLLOWING MEDICATIONS NEED TO BE RECONCILED: Cymbalta Oral 60mg , daily Diazepam Oral 10 mg, took 2 tablets today at 1800. Tenex Oral, unknown Valtrex Oral (500 mg) 2 tablets, daily The source(s) of the original Home Medication information: patient The following Medications were given to the patient in the Emergency Department: IV NS IV Fluids bolus 0, then 1000 mL/hr, administered: 03/28/2016 8:30:00 PM The following Medications were prescribed to the patient: None.
--- NOTE | 2016-04-02 13:42 | ED MAR SUMMARY ---
..... Medication Administration Record [facility] [address] [place] [address] Patient: JOSE KAYE Visit ID: [id number] 35y, F Weight: 68.0 kg Height/Length: 62 in BMI: 27.4 ALLERGIES: Codeine Start 20:30 03/28/2016 Keena Shultz R.N., Stop 21:30 03/28/2016 Keena Shultz R.N. Medication Administered: IV NS (SALINE), Dose: IV Fluids over 1 hour(s), Rate: 1000 mL/hr, Dispensed: 1000 mL bag, Site: #1 right forearm. Medication Ordered: IV NS : initial bolus 1000 mL (1000 mL/hr), then none - for X1 (NOW).
--- NOTE | 2016-04-02 13:42 | ED DISCHARGE INSTRUCTIONS ---
Patient: JOSE KAYE General Instructions [facility] VisitID: [id number] [address] [place] [address] 35y, F Registration Date/Time: 03/28/2016 Acute renal insufficiency. Moderate hyponatremia. (Electronically signed by Melia Melchor A.R.N.P. 04/02/2016 13:42)
--- NOTE | 2016-04-02 13:42 | ED MAR SUMMARY ---
..... Medication Administration Record [facility] [address] [place] [address] Patient: JOSE KAYE Visit ID: [id number] 35y, F Weight: 68.0 kg Height/Length: 62 in BMI: 27.4 ALLERGIES: Codeine Start 20:30 03/28/2016 Keena Shultz R.N., Stop 21:30 03/28/2016 Keena Shultz R.N. Medication Administered: IV NS (SALINE), Dose: IV Fluids over 1 hour(s), Rate: 1000 mL/hr, Dispensed: 1000 mL bag, Site: #1 right forearm. Medication Ordered: IV NS : initial bolus 1000 mL (1000 mL/hr), then none - for X1 (NOW).
--- NOTE | 2016-04-02 13:42 | ED DISCHARGE INSTRUCTIONS ---
Patient: JOSE KAYE General Instructions [facility] VisitID: [id number] [address] [place] [address] 35y, F Registration Date/Time: 03/28/2016 Acute renal insufficiency. Moderate hyponatremia. (Electronically signed by Melia Melchor A.R.N.P. 04/02/2016 13:42)
== END 2016-03-28 23:30 | disposition short-term general hospital (02) ==
LOC: ED SRH 18:41
DX: N28.9 Disorder of kidney and ureter, unspecified (principal); E87.1 Hypo-osmolality and hyponatremia; R47.81 Slurred speech; Z87.891 Personal history of nicotine dependence
CPT/HCPCS: 90004; 90100; 92235; 92530; 92610; 92760; 92761; 92762; 92763; 92764; 92765; 92766; 92767; 93070; 95059